=== PATIENT | male | born 1935 | race Caucasian/White ===

== ENCOUNTER 2017-12-28 14:50 | Emergency (ER) | payer MEDICARE, BC, SELFPAY ==
[2017-12-28 14:51] VITALS: BP 156/102; PULSE 65; RESP 16; TEMP 36.2; O2SAT 96; BMI 25.6
[2017-12-28] MEDS: Diphth,Pertuss(Acell),Tet Vac 0.5 ML Vial IM (15:32)
--- NOTE | 2017-12-28 15:32 | ED.DCSUM_ITS ---
- ER Visit Summary Date of Service: 12/28/17 Chief Complaint: Skin tear History of Present Illness: The patient is a 82 M presenting for evaluation due to a skin tear. Patient was working outside and struck his leg on a branch and suffered a skin tear to his left anterior clark. Tetanus status is unknown. Physical Examination: Physical exam unremarkable and noted in the template except for examination of the left lower extremity. There is approximately a 10 cm skin tear noted over the patient's left anterior clark. There is good hemostasis. No evidence of foreign bodies. Normal sensation and cap refill distally. Test Results: None indicated Emergency Department Course and Treatment: Patient presented secondary to a skin tear. The patient's skin does not appear that it will be viable, and I do not believe that there is any indication for suture or repair with Steri- Strips. Wound was copiously irrigated with sterile saline, and skin was debrided with tissue scissors approximately 5 cm?. There is no evidence of foreign bodies. Patient's wound will be placed in a nonstick dressing with bacitracin. His tetanus status was updated. Patient will follow up with primary care to ensure healing. Disposition: Discharge Impression: 1. 10 cm left leg skin tear 2. Wound debridement by ED physician This note was generated with [employer] dictation software. It may contain incorrect words, spelling, and punctuation that were not noted in review of the chart prior to signing ED Disposition - Plan for ED Patient: Disposition: Home or Assisted Living Chief Complaint: Laceration Diagnosis: Skin tear Instructions: ED Avulsion Dermal Referrals: Real Samuels MD [Primary Care Provider] - 5-7 Days
[2017-12-28 15:49] VITALS: RESP 15
== END 2017-12-28 15:50 | disposition home or self-care (01) ==
LOC: ED 15:46
PROVIDERS: Emergency Provider Emergency Medicine; Family Provider Family Medicine; PCP Family Medicine
DX: S81.812A Laceration without foreign body, left lower leg, initial encounter (principal); W22.8XXA Striking against or struck by other objects, initial encounter; Y93.9 Activity, unspecified; Y92.007 Garden or yard of unspecified non-institutional (private) residence as the place of occurrence of the external cause; Y99.9 Unspecified external cause status; I25.10 Atherosclerotic heart disease of native coronary artery without angina pectoris; I73.9 Peripheral vascular disease, unspecified; Z95.1 Presence of aortocoronary bypass graft; Z23 Encounter for immunization
CPT/HCPCS: 90471; 90715; 99283

== ENCOUNTER 2018-04-14 07:58 | Emergency (ER) | payer MEDICARE, BC, SELFPAY ==
[2018-04-14 08:00] VITALS: BP 133/82; PULSE 61; RESP 17; TEMP 37.1; O2SAT 97; BMI 26.6
--- NOTE | 2018-04-14 08:17 | ED.VISSUMM ---
- ER Visit Summary Date of Service: 04/14/18 Chief Complaint: Bee sting History of Present Illness: The patient is a 82 M presenting with bee sting to right hand and nose. Patient has a history of allergy to bees. He was stung yesterday around 1:30 PM. He has been taking Benadryl at home which usually improves his symptoms. He continues to have itching. He woke up this morning with increased swelling to the right side of his face. He denies any difficulty breathing or swallowing. Denies other complaints. Physical Examination: Vitals are stable. Patient is afebrile. Alert no acute distress. HEENT exam no pharyngeal edema, no tongue swelling. Right periorbital edema. PERRL, EOMI. Neck is supple. Lungs are clear and equal bilaterally. No wheezing Heart is regular rate and rhythm. Abdomen is soft nontender nondistended. Extremities mild right dorsal hand swelling, AFROM. Skin is warm and dry. No rash No focal neurologic deficit. Remainder of exam is unremarkable. Emergency Department Course and Treatment: Patient is given Solu-Medrol IV. He was observed in the emergency department. On re-evaluation he is resting comfortably. He continues to have no difficulty breathing or swallowing. He is given a prescription for prednisone. Advised to follow-up with primary care physician. Advised return to ED for worsening complaints. Disposition: Discharge home Impression: Bee sting, right hand and nose This note was generated with depict dictation software. It may contain incorrect words, spelling, and punctuation that were not noted in review of the chart prior to signing ED Disposition - Plan for ED Patient: Chief Complaint: Allergic Reaction Instructions: ED Bite Sting Insect Local Allergic React Prescriptions: Prednisone [Deltasone] 20 mg PO DAILY #4 tablet Referrals: Real Samuels MD [Primary Care Provider] -
[2018-04-14] MEDS: MethylPREDNISolone 125 MG/2 ML Vial IV (08:24)
--- NOTE | 2018-04-14 08:34 | ED.DEP ---
ED Disposition - Plan for ED Patient: Chief Complaint: Allergic Reaction Instructions: ED Bite Sting Insect Local Allergic React Prescriptions: Prednisone [Deltasone] 20 mg PO DAILY #4 tablet Referrals: Real Samuels MD [Primary Care Provider] -
[2018-04-14 09:18] VITALS: BP 121/78; PULSE 59; RESP 17; O2SAT 99
== END 2018-04-14 09:19 | disposition home or self-care (01) ==
PROVIDERS: Emergency Provider Emergency Medicine; Family Provider Family Medicine; PCP Family Medicine
DX: T63.441A Toxic effect of venom of bees, accidental (unintentional), initial encounter (principal); Y92.9 Unspecified place or not applicable; I10 Essential (primary) hypertension; E78.00 Pure hypercholesterolemia, unspecified
CPT/HCPCS: 99283; A4216

== ENCOUNTER 2018-06-19 16:36 | Emergency (ER) | payer MEDICARE, BC, SELFPAY ==
[2018-06-19] VITALS (10 sets, daily range): BP systolic 99–142; BP diastolic 72–107; PULSE 95–145; RESP 14–28; TEMP 35.8; O2SAT 50–100; BMI 28.8
[2018-06-19] MEDS: Rocuronium Bromide 50 MG/5 ML Vial 100 MG IV (16:39)
[2018-06-19] MEDS: Etomidate 20 MG/10 ML Vial IV (16:39)
--- NOTE | 2018-06-19 16:43 | RAD_ITS ---
STUDY: X-RAY CHEST REASON FOR EXAM: Male, 83 years old. Patient has been intubated TECHNIQUE: Single AP portable view of the chest. # of Images: 1 COMPARISON: None. FINDINGS: ET tube has been placed with its tip terminating roughly 4.8 cm above the blanca. NG tube with tip and side-port in the stomach. There is hyperinflation of the lungs consistent with chronic obstructive lung disease (COPD). Slight interstitial edema throughout. No focal consolidation or infiltrates. There is no demonstrated pleural abnormality. Sternal cerclage wires are present from a prior sternotomy. Mild cardiomegaly. Normal mediastinum and damien. Normal visualized pulmonary arteries. Normal visualized aortic arch and descending thoracic aorta. Normal visualized thoracic spine. Normal visualized ribs, clavicles, and shoulders. There is no demonstrated abnormality of the visualized soft tissue structures of the upper abdomen. RAD/Chest 1 View (Portable) IMPRESSION: Mild interstitial edema. ET tube and NG tube as above. Electronically Signed: Torrey Beltrán DO at 17:14 EDT Tel , Service support ,
--- NOTE | 2018-06-19 16:43 | CT_ITS ---
STUDY: CT BRAIN WITHOUT CONTRAST REASON FOR EXAM: Male, 83 years old. Found on the floor, unresponsive RADIATION DOSAGE (If Supplied By Facility): CTDIvol = ( 44.99 ) mGy, DLP = ( 829.85 ) mGycm TECHNIQUE: Transaxial CT imaging of the brain was performed without administration of intravenous contrast material. # of Images: 259 Individualized dose optimization techniques were used for this CT. COMPARISON: None. FINDINGS: Normal soft tissue structures. Normal calvarium. There is mild cerebral atrophy with widening of the extra-axial spaces and ventricular dilatation. There are areas of decreased attenuation within the white matter tracts of the supratentorial brain, consistent with microvascular disease changes. Normal basal ganglia and thalami. Normal brainstem. There is mild cerebellar atrophy. Acute intracranial hemorrhage noted within the lateral ventricles as well as the third and fourth ventricle no mass effect or midline shift at this time. No evidence of subarachnoid, parenchymal hemorrhage. There are no findings of an acute ischemic infarction. Normal visualized paranasal sinuses. CT/Brain/Head without Contrast IMPRESSION: Extensive intraventricular hemorrhage as well as hemorrhage within the third and fourth ventricles. No mass effect or midline shift. No parenchymal hemorrhage. N.B. : The above information has been verbally conveyed by Torrey Beltrán DO to Valentin Yee MD, , on 06/19/2018 17:52:36 (ET). Electronically Signed: Torrey Beltrán DO at 17:52 EDT Tel , Service support ,
--- NOTE | 2018-06-19 16:44 | RAD_ITS ---
STUDY: X-RAY - ABDOMEN/PELVIS REASON FOR EXAM: Male, 83 years old. OG placement TECHNIQUE: Single AP view of the abdomen / pelvis. # of Images: 1 COMPARISON: None. FINDINGS: Normal visualized lung bases. Enteric tube has been placed with tip in side-port in the stomach. No evidence of free air. Nonspecific bowel gas pattern. The visualized liver, spleen and kidneys are grossly normal in size and morphology. Normal soft tissue structures. There are diffuse degenerative changes of the visualized lumbar spine. RAD/Abdomen Single View (Portable) IMPRESSION: NG tube with tip and side-port in the stomach Electronically Signed: Torrey Beltrán DO at 17:13 EDT Tel , Service support ,
--- NOTE | 2018-06-19 16:44 | EKG12_ITS ---
Test Reason : Blood Pressure : / mmHG Vent. Rate : 137 BPM Atrial Rate : 133 BPM P-R Int : 000 ms QRS Dur : 104 ms QT Int : 310 ms P-R-T Axes : 000 -05 100 degrees QTc Int : 468 ms Atrial fibrillation with rapid ventricular response Cannot rule out Anteroseptal infarct , age undetermined T wave abnormality, consider lateral ischemia Abnormal ECG Confirmed by VIKRAM GLASS ([id number]), newspaper copy editor DRE AREVALO ([id number]) on 06/29/2018 11:47:05 AM Referred By: LUIS Confirmed By:VIKRAM GLASS
[2018-06-19] MEDS: Propofol 10MG/Ml 1,000 MG/100 ML Bottle 2.889 MG CONT INF (16:50)
[2018-06-19 17:00] LABS: Absolute Lymphocyte Count 3.27 X10^3/ul (0.83-4.51); Basophil# 0.06 X10^3/uL; Basophil% 0.6 % (0-1); Eosinophil# 0.54 X10^3/uL; Eosinophils% 5.7 % (0-5); Hematocrit 44.3 % (40-54); Hemoglobin 14.4 g/dl (13.0-16.5); Lymphocyte # 3.27 X10^3/ul (4.0); Lymphocyte % 34.3 % (19-41); Mean Corp Hgb Conc 32.5 g/gl (32-36); Mean Corpuscular Hgb 30.9 pg (27.0-32.0); Mean Corpuscular Volume 95.1 fL (80-94); Mean Platelet Vol. 11.9 fl (6.2-12.0); Monocyte# 0.68 X10^3/uL; Monocyte% 7.1 % (0-10); Neutrophil # 4.97 X10^3/uL (2.7-7.7); Neutrophil % 52.1 % (47-70); Platelet Count 145 K/mm3 (150-450); RBC Distribution Width CV 14.6 % (11.6-14.6); RBC Distribution Width SD 48.5 fl (35.1-43.9); Red Blood Count 4.66 M/mm3 (4.6-6.2); White Blood Count 9.5 K/mm3 (4.4-11.0)
[2018-06-19] MEDS: Albuterol 2.5 MG/3 ML VIAL.NEB. INHALATION (17:00)
--- NOTE | 2018-06-19 17:00 | ED.DCSUM_ITS ---
- ER Visit Summary Date of Service: 06/19/18 Chief Complaint: Unresponsive History of Present Illness: The patient is a 83 M who presents unresponsive. He was found in the bathroom with a pool of coffee-ground emesis around him. states that he has a history of constipation so it is not abnormal for him to be in the bathroom for a long time. She found him laying in he was not responsive. Upon EMS arrival he was not responsive. They bagged him on the way in. Patient was not responsive for any questioning for history Physical Examination: Vital signs reviewed. Patient being bagged currently. His gag reflex is intact. There is fresh and dried blood inside and around the mouth heart is regular at this time. He has strong femoral and radial pulses. Head exam reveals no trauma. His pupils are equal. Abdomen soft and nondistended. Patient is unresponsive with a GCS of 3. Test Results: EKG is A. fib with a rate of 137. Nonspecific changes noted. CAT scan head reveals an intraventricular hemorrhage. Platelets are 145. INR 2.3. Troponin 0 0.189. Emergency Department Course and Treatment: The patient was intubated upon arrival due to a GCS of 3. He was given etomidate and rocuronium. A 7.5 ET tube was placed. There is some slight hypoxia afterwards with pulse ox in the 80s. This helped with bagging with a PEEP valve. The patient likely aspirated during his unresponsive state. His ABG revealed a metabolic acidosis with a pH of 7.21 and a PCO2 of 60. CAT scan of the head revealed intraventricular hemorrhage. I discussed with the family and they would like him to go to the [facility] because he is established there. I discussed with Dr. Lott who would like to give the patient mannitol. I also gave the patient Kcentra due to the elevated INR. I discussed with [employer] and they are unable to fly due to weather. Patient will be sent by ground transportation Treatment Plan: [] Disposition: Transfer Impression: Intraventricular hemorrhage Elevated INR This note was generated with [employer] dictation software. It may contain incorrect words, spelling, and punctuation that were not noted in review of the chart prior to signing ED Disposition - Plan for ED Patient: Chief Complaint: Unresponsive Referrals: Real Samuels MD [Primary Care Provider] -
[2018-06-19 17:01] LABS: POSITIVE COUNT NO; POSITIVE DIFFERENTIAL NO; POSITIVE MORPHOLOGY NO
[2018-06-19 17:02] LABS: Mucous, Urine 0 SEEN /hpf (<or=2+); Squamous Epithelial Cells - UA 0 SEEN /hpf (0-5); White Blood Cells 0 SEEN /hpf (0-5)
[2018-06-19 17:03] LABS: Color, Urine Yellow (Yellow); Glucose, Dipstick Normal (Normal); Ketone-Dipstick Negative (Negative); Leukocyte Esterase-Dipstick Negative /ul (Negative); Nitrite-Dipstick Negative (Negative); Occult Blood-Urine 25 /ul (Negative); Protein-Dipstick 100 mg/dl (Negative); Specific Gravity, Urine 1.015 (1.002-1.030); Urine Bilirubin Dipstick Negative (Negative); Urine Clarity Clear (Clear); Urine Urobilinogen Normal (Normal)
[2018-06-19 17:06] LABS: International Normalized Ratio 2.3; Prothrombin Time (Protime)PT. 25.6 SECONDS (11.7-14.9)
[2018-06-19 17:07] LABS: Partial Thromboplast Time 52.9 Seconds (24.1-36.2)
[2018-06-19 17:09] LABS: Bacteria RARE /hpf (None Seen); Red Blood Cells-Urine 0-5 SEEN /hpf (0-5)
[2018-06-19 17:11] LABS: Allen Test POS; Base Excess -3 mmol/L (-2 to +2); Bicarbonate 24.4 mmol/L (22-26); Blood Gas Specimen Type ART; FI02 100; Mode A-C; O2 Delivery Device Vent; PEEP 8; PO2 69 mmHG (75-100); RR 12; SITE L Radial; SO2 89 % (95-99); Time Given 1700; Total Carbon Dioxide 26 mmol/L; Vt 500; pCO2 60.6 mmHg (35-45); pH 7.21 (7.35-7.45)
[2018-06-19 17:18] LABS: Amphetamine Urine VISTA NEGATIVE (<1000 ng/mL); Barbiturate Urine VISTA NEGATIVE (< 200 ng/mL); Benzodiazepine Urine VISTA NEGATIVE (< 200 ng/mL); Cocaine Urine VISTA NEGATIVE (< 300 ng/mL); Ecstacy Urine VISTA NEGATIVE (< 500 ng/mL); Methadone Urine VISTA NEGATIVE (< 300 ng/mL); PCP Urine VISTA NEGATIVE (< 25 ng/mL); THC Urine VISTA NEGATIVE (< 50 ng/mL); Vista UDS pH Range 6
[2018-06-19 17:23] LABS: ALB/GLOB Ratio 0.9 RATIO (0.9-2.4); AST(SGOT) 39 U/L (15-37); Alanine Aminotransfer ALT/SGPT 23 U/L (16-61); Albumin, Serum 3.3 g/dL (3.2-5.0); Alkaline Phosphatase 137 U/L (45-117); Anion Gap 9 (5-15); BUN 18 mg/dL (7-18); BUN/Creat Ratio 21.1 RATIO (10-20); Calcium,Total 7.4 mg/dL (8.5-10.1); Chloride 106 mmol/L (98-107); Creatinine, Serum 0.86 mg/dL (0.70-1.30); EST Glomerular Filtration Rate 91 mL/min (>60); Est Glom Filt Rate - Afr Amer 111 mL/min (>60); Estimated Creatinine Clearance 73.94 ml/min; Globulin 3.5 g/dL (2.2-4.2); Glucose 208 mg/dL (74-106); Potassium 3.6 mmol/L (3.5-5.1); Protein, Total 6.8 g/dL (6.4-8.2); Sodium Level 140 mmol/L (136-145)
[2018-06-19 17:34] LABS: Alcohol, Blood (Medical)-Serum < 3.0 mg/dL
[2018-06-19] MEDS: Mannitol 50gm/250ml 50 GM in Premixed Bag 1 BAG IV ×2 (18:17→18:32)
--- NOTE | 2018-06-19 18:33 | ED.RN ---
REPORT GIVEN TO [employer], PT STATUS UNCHANGED AT THIS TIME.
[2018-06-19 18:50] LABS: Lactic Acid 2.8 mmol/L (0.4-2.0)
[2018-06-19 22:15] LABS: Reflex Lactate? Y
== END 2018-06-19 18:45 | disposition short-term general hospital (02) ==
PROVIDERS: Emergency Provider Emergency Medicine; Family Provider Family Medicine; PCP Family Medicine
DX: I61.5 Nontraumatic intracerebral hemorrhage, intraventricular (principal); E87.2 Acidosis; I48.91 Unspecified atrial fibrillation; I25.10 Atherosclerotic heart disease of native coronary artery without angina pectoris
CPT/HCPCS: 31500; 31720; 36600; 51702; 70450; 71045; 74018; 80053; 80307; 80320; 81001; 82803; 83605; 84484; 85025; 85610; 85730; 93005; 94002; 99251; 99285; C9132; J7030; J7040; A4216; G0463; G0480; J3490